=== PATIENT | female | born 1995 | race Caucasian/White ===

== ENCOUNTER 2018-09-23 18:24 | Emergency (ER) | payer SELFPAY ==
--- NOTE | 2018-09-23 19:02 | ER Document Report ---
ED Medical Screen (RME) - General Chief Complaint: Lower Abdominal Pain Stated Complaint: ABDOMINAL PAIN Time Seen by Provider: 09/23/18 18:58 Primary Care Provider: KEELEY COLON MD [Primary Care Provider] - Follow up as needed Mode of Arrival: Wheelchair Information source: Patient Notes: 23-year-old female presented to ED for complaint of severe pelvic pain and lower abdominal pain. She states that she was recently treated for trichomonas. She states she had sex with another partner who stated that they had chlamydia but she did not go follow-up and get treated for that. She states now she has severe abdominal and pelvic pain. Patient is alert and oriented respirations regular and unlabored speaking in full sentences. Self swab GC chlamydia and wet mount have been completed urine has been ordered. Patient does have tenderness to palpation to the pelvic area. I have greeted and performed a rapid initial assessment of this patient. A comprehensive ED assessment and evaluation of the patient, analysis of test results and completion of medical decision making process will be conducted by an additional ED providers. TRAVEL OUTSIDE OF THE [place] IN LAST 30 DAYS: No - Related Data Allergies/Adverse Reactions: No Known Allergies Allergy (Unverified 09/23/18 18:27) Physical Exam - Vital signs Vitals: Temp Pulse Resp BP Pulse Ox 99.2 F 96 18 111/71 99 09/23/18 18:46 09/23/18 18:46 09/23/18 18:46 09/23/18 18:46 09/23/18 18:46 Course - Vital Signs Vital signs: Temp Pulse Resp BP Pulse Ox 99.2 F 96 18 111/71 99 09/23/18 18:46 09/23/18 18:46 09/23/18 18:46 09/23/18 18:46 09/23/18 18:46 Doctor's Discharge - Discharge Referrals: KEELEY COLON MD [Primary Care Provider] - Follow up as needed
[2018-09-23 19:15] LABS: BACTERIA (WET MOUNT) 4+ BACTERIA SEEN; EPITHELIALS (WET MOUNT) 4+ EPITHELIALS SEEN; T.VAGINALIS (WET MOUNT) TRICHOMONAS SEEN; WBCS (WET MOUNT) 2+ WBCS SEEN; YEAST (WET MOUNT) NO YEAST SEEN
[2018-09-23 19:31] LABS: APPEARANCE,URINE CLOUDY; BILIRUBIN,URINE NEGATIVE (NEGATIVE); COLOR,URINE AMBER; GLUCOSE, URINE NEGATIVE (NEGATIVE); KETONES,URINE NEGATIVE (NEGATIVE); LEUKOCYTE ESTERASE,URINE SMALL (NEGATIVE); NITRITE,URINE NEGATIVE (NEGATIVE); PROTEIN,URINE 30 mg/dL (NEGATIVE)
[2018-09-23] MEDS ORDERED: METRONIDAZOLE 500 MG TABLET PO ONE (19:59)
[2018-09-23] MEDS ORDERED: CEFTRIAXONE INJ 250 MG VIAL IM ONE (19:59)
[2018-09-23] MEDS ORDERED: AZITHROMYCIN 250 MG TABLET PO ONE ×2 (19:59→20:08)
[2018-09-23] MEDS ORDERED: LIDOCAINE 1% INJ-PF (10 MG/ML) 30 ML SDV INJ ONE (19:59)
[2018-09-23] MEDS ORDERED: IBUPROFEN 800 MG TABLET PO ONE (19:59)
[2018-09-23] MEDS ORDERED: PROMETHAZINE HCL 25 MG TABLET PO ONE (20:13)
--- NOTE | 2018-09-23 20:20 | ER Document Report ---
ED GI/ - General Chief Complaint: Lower Abdominal Pain Stated Complaint: ABDOMINAL PAIN Time Seen by Provider: 09/23/18 18:58 Primary Care Provider: KEELEY COLON MD [COMMUNITY BASED STAFF] - Follow up as needed Mode of Arrival: Wheelchair Information source: Patient Notes: 23-year-old female presented to ED for complaint of pelvic pain. She did not want to discuss what was going on while her father was in the room. She is related to her father left the room and then stated that she had sex with a sexual partner that stated he had chlamydia and she did not get treated and now she has pelvic pain. She also stated that she was recently treated for trichomonas. When I saw her earlier in the [employer] she stated she did not want a complete pelvic she just wanted to be tested. She did self swab for wet mount and GC and chlamydia. She did come back positive for trichomonas and was treated with Flagyl, Rocephin, and azithromycin in the emergency room she was a lso treated with ibuprofen. She was given Phenergan due to the amount of medication she was taken. TRAVEL OUTSIDE OF THE [place] IN LAST 30 DAYS: No - HPI Patient complains to provider of: Pelvic pain, Vaginal discharge Onset: Other - 2-3 days Timing/Duration: Gradual, Intermittent Quality of pain: Achy, Dull Severity at maximum: Severe Severity in ED: Moderate Pain Level: 3 Location: Pelvis, Vaginal Vaginal bleeding (Compared to normal period): None Sexual history: Multiple partners, Unprotected intercourse, STD exposure Associated symptoms: Nausea, Radiates to vagina, Vaginal discharge Exacerbated by: Coughing Relieved by: Denies Similar symptoms previously: Yes Recently seen / treated by doctor: No - Related Data Allergies/Adverse Reactions: No Known Allergies Allergy (Unverified 09/23/18 18:27) Past Medical History - General Information source: Patient - Social History Smoking Status: Former Smoker Frequency of alcohol use: None Drug Abuse: Other - She is taken suboxone from the street. 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 She states she has not been to a doctor to get a prescription. Lives with: Family Family History: Reviewed & Not Pertinent Patient has suicidal ideation: No Patient has homicidal ideation: No - Past Medical History Cardiac Medical History: Reports: None Pulmonary Medical History: Reports: None EENT Medical History: Reports: None Neurological Medical History: Reports: None Endocrine Medical History: Reports: None Renal/ Medical History: Reports: Hx Pelvic Inflammatory Disease Malignancy Medical History: Reports: None GI Medical History: Reports: None Musculoskeletal Medical History: Reports None Skin Medical History: Reports None Psychiatric Medical History: Reports: None Traumatic Medical History: Reports: None Infectious Medical History: Reports: None Review of Systems - Review of Systems Constitutional: No symptoms reported EENT: No symptoms reported Cardiovascular: No symptoms reported Respiratory: No symptoms reported Gastrointestinal: No symptoms reported Genitourinary: No symptoms reported Female Genitourinary: Vaginal bleeding, Other - Pelvic pain Musculoskeletal: No symptoms reported Skin: No symptoms reported Hematologic/Lymphatic: No symptoms reported Neurological/Psychological: No symptoms reported -: Yes All other systems reviewed and negative Physical Exam - Vital signs Vitals: Temp Pulse Resp BP Pulse Ox 99.2 F 96 18 111/71 99 09/23/18 18:46 09/23/18 18:46 09/23/18 18:46 09/23/18 18:46 09/23/18 18:46 Interpretation: Normal - General General appearance: Appears well, Alert - HEENT Head: Normocephalic, Atraumatic Eyes: Normal Pupils: PERRL - Respiratory Respiratory status: No respiratory distress Chest status: Nontender Breath sounds: Normal Chest palpation: Normal - Cardiovascular Rhythm: Regular Heart sounds: Normal auscultation Murmur: No - Abdominal Inspection: Normal Distension: No distension Bowel sounds: Normal Tenderness: Nontender Organomegaly: No organomegaly - Back Back: Normal, Nontender - Extremities General upper extremity: Normal inspection, Nontender, Normal color, Normal ROM, Normal temperature General lower extremity: Normal inspection, Nontender, Normal color, Normal ROM, Normal temperature, Normal weight bearing. No: Bruce's sign - Neurological Neuro grossly intact: Yes Cognition: Normal Orientation: AAOx4 [place] Coma Scale Eye Opening: Spontaneous [place] Coma Scale Verbal: Oriented [place] Coma Scale Motor: Obeys Commands Satinder Coma Scale Total: 15 Speech: Normal Motor strength normal: LUE, RUE, LLE, RLE Sensory: Normal - Psychological Associated symptoms: Normal affect, Normal mood - Skin Skin Temperature: Warm Skin Moisture: Dry Skin Color: Normal Course - Re-evaluation Re-evalutation: 09/24/18 02:13 Patient refused pelvic exam but she did do self swabs. She was positive for trichomonas and bacterial vaginosis. She states she knows that she had unprotected sex with a partner that was positive for chlamydia and did not get treated. She was treated in the emergency room with Flagyl, ibuprofen, Phenergan, Rocephin IM, and a azithromycin. She was discharged home with prescription for Flagyl. After she had gone home her GC and chlamydia came back positive for gonorrhea. She had been instructed to call for the results of her GC and chlamydia. She was treated. Patient was instructed to follow-up with her primary doctor to please get on a prescription of the Suboxone instead of getting street drugs. Patient was instructed that it is very important that she follows up with a primary care doctor and [facility] for her chronic pelvic inflammatory disease. - Vital Signs Vital signs: Temp Pulse Resp BP Pulse Ox 98.1 F 92 16 111/61 99 09/23/18 20:31 09/23/18 20:31 09/23/18 20:31 09/23/18 20:31 09/23/18 20:31 - Laboratory Laboratory results interpreted by me: 09/23/18 09/23/18 18:56 19:14 Urine Protein 30 H Urine Blood SMALL H Urine Urobilinogen 4.0 H Ur Leukocyte Esterase SMALL H N.gonorrhoeae DNA (PCR) DETECTED H Discharge - Discharge Clinical Impression: Pelvic pain, Trichomonas vaginalis (TV) infection, Bacterial vaginitis, Chlamydia contact, untreated Condition: Stable Disposition: HOME, SELF-CARE Additional Instructions: VAGINITIS: Your exam shows that you have vaginitis, a vaginal infection. The infection can be caused by a many different organisms, including trichomonas or Gardnerella. The usual symptoms are vaginal irritation and discharge. The treatment is usually antibiotics such as Flagyl. Laboratory tests can determine which germ is responsible. Use the medication as prescribed. Because this infection can be transmitted sexually, your sexual partner may need to be checked and treated also. If your physician has not discussed this with you, please check before resuming sexual relations. If a culture shows gonorrhea or chlamydia, the infection must be reported to the health department. Call the doctor if you develop pelvic pain, fever, or problems with urination, or if you don't improve as expected. VAGINOSIS, BACTERIAL: Your exam shows you have bacterial vaginosis. This condition is due to an overgrowth of bacteria in the vagina. Symptoms may include vaginal itching or pain, a smelly discharge, and sometimes burning with urination. Normally this is not transmitted by sexual contact. Vaginosis can be treated with oral or topical antibiotics. Metronidazole (Flagyl) pills are usually effective. Topical vaginal creams include Cleocin and Metro-Gel. You should avoid sexual contact until your symptoms are all better. Call the doctor if you develop pelvic pain, fever, or problems with urination, or if you don't improve as expected. VAGINAL TRICHOMONAS INFECTION: Trichomoniasis is infection of the vagina or male genital tract with Trichomonas vaginalis. It can be asymptomatic or cause urethritis, vaginitis, or occasionally cystitis, epididymitis, or prostatitis. Diagnosis is by microscopic examination of vaginal or prostatic secretions or by urethral culture. Patients and sex partners are treated with metronidazole. T. vaginalis is a flagellated, sexually transmitted protozoan that more often infects women (about 20% of women of reproductive age) than men. Infection may be asymptomatic in either sex, but asymptomatic is the rule for men. In men, protozoa may persist for long periods in the tract without causing symptoms; thus, protozoa may be transmitted unwittingly to sex partners. Trichomoniasis may account for up to 5% of nongonococcal, nonchlamydial urethritis in men in some areas. Co-infection with gonorrhea and other sexually transmitted diseases (STDs) is common. In women, symptoms range from none to copious, yellow-green, frothy vaginal discharge with soreness of the vulva and perineum, dyspareunia, and dysuria. Asymptomatic infection may become symptomatic at any time as the vulva and perineum become inflamed and edema develops in the labia. The vaginal pacheco and surface of the cervix may have punctate, red "strawberry" spots. Urethritis and possibly cystitis may also occur. Men are usually asymptomatic; however, sometimes urethritis results in a discharge that may be transient, frothy, or purulent or that causes dysuria and frequency, usually early in the morning. Often, urethritis is mild and causes only minimal urethral irritation and occasional moisture at the urethral meatus, under the foreskin, or both. Epididymitis and prostatitis are rare complications. Trichomoniasis is suspected in women with vaginitis, in men with urethritis, and in their sex partners. Suspicion is high if symptoms persist after patients have been evaluated and treated for other infections such as gonorrhea and chlamydial, mycoplasmal, and ureaplasmal infections. In women, diagnosis is based on clinical criteria and in-office testing. The saline wet mount is examined microscopically as soon as possible to detect trichomonads.In men, microscopy of urine is insensitive, although occasionally organisms are visible in a first-voided morning specimen or a centrifuged specimen. Cultures of urine and urethral swabs are more sensitive. As with diagnosis of any STD, patients with trichomoniasis should be tested to exclude other common STDs such as gonorrhea and chlamydial infection. Metronidazole or tinidazole 2 g po in a single dose cures up to 95% of women if sex partners are treated simultaneously. Effectiveness of single-dose regimens in men is not as clear, so treatment is typically with metronidazole or tinidazole 500 mg bid for 5 to 7 days. Sex partners should be screened and treated for trichomoniasis and other STDs. If poor adherence to follow-up is likely, treatment can be initiated in se x partners of patients with documented trichomoniasis without confirming the diagnosis in the partner. ANTIBIOTIC THERAPY: You have been given an antibiotic prescription. It's important that you take all the medication, unless instructed otherwise by your physician. Failure to complete the entire course can result in relapse of your condition. Common side effects of antibiotics include nausea, intestinal cramping, or diarrhea. Women may develop vaginal yeast infections, and babies can get yeast (thrush) in the mouth following the use of antibiotics. Contact your physician if you develop significant side effects from this medication. Allergy to this antibiotic can result in hives, wheezing, faintness, or itching. If symptoms of allergy occur, stop the medication and call the doctor. CEPHALOSPORINS: An antibiotic of the cephalosporin class has been prescribed. This type of antibiotic covers a wide variety of infections, including those of the skin, lungs, middle ear, and urinary tract. This antibiotic is somewhat similar to the penicillin family. In rare cases, a person who is allergic to penicillin will also be allergic to this medication. If you have had a severe allergic reaction to penicillin, and have not taken this antibiotic since that time, notify your doctor. Antibiotics which cover many germs ("broad spectrum" antibiotics) are more likely to cause diarrhea or "yeast" infections. Women prone to vaginal yeast problems may suffer an attack after taking this antibiotic. In infants, oral thrush (white spots "stuck" on the cheek) or yeast diaper rash may result. See your doctor if these problems occur. Call the doctor at once if you develop hives, itching, shortness of breath, or lightheadedness. AZITHROMYCIN: Azithromycin (Zithromax) is a broad spectrum antibiotic in the same class as erythromycin. It can treat a variety of bacterial infections, but is most frequently used for respiratory infections. Azithromycin is extremely long-lasting. It accumulates in body tissues and continues to kill bacteria for many days. In order to improve absorption, Azithromycin should be taken at least one hour before or two hours after a meal. It does not have the same strong tendency to upset the stomach as erythromycin and is usually very well tolerated. Patients who have had a rash or other true allergic reactions to erythromycin should not take this medication. Call if you develop gastrointestinal distress, severe diarrhea, rash, hives, itching, or shortness of breath. METRONIDAZOLE: Metronidazole (Flagyl) has been prescribed. This medication is used to kill a type of bacteria called anaerobes, and protozoan parasites such as trichomonas and Giardia. Flagyl often causes a metallic taste in the mouth and mild nausea. Do not use alcohol in any form with Flagyl (including alcohol in medication elixirs). Flagyl interacts with alcohol to cause flushing, palpitations, head ache, stomach cramps, and vomiting. Do not use Flagyl if you are taking Antabuse (disulfiram). Call the doctor at once if you develop rash, shortness of breath, itching, or lightheadedness. Antinausea Medication You have been given a medication to suppress nausea and vomiting. This type of medication can be given as a shot, pill, or suppository. It will usually last for many hours. Pills and shots usually last six to eight hours, suppositories last about 12 hours. For the typical illness, only one or two doses of the medication may be necessary. Mild lightheadedness may occur. This type of medicine can cause drowsiness. Do not drive or operate dangerous machinery while under its influence. Do not mix with alcohol. See your doctor at once if you have muscle spasms or tightness, or uncontrollable motions (particularly of the neck, mouth, or jaw). Persistent vomiting or severe lightheadedness should also be evaluated by the physician. Ibuprofen Ibuprofen is an excellent, safe drug for pain control. In addition, it has potent antiinflammatory effects which are beneficial, especially in the treatment of injuries, arthritis, or tendonitis. It's best to take ibuprofen with food. Persons with ulcer disease or allergy to aspirin should notify their physician of this before taking ibuprofen. Take the medication exactly as prescribed. Don't take additional doses unless instructed to do so by your doctor. If you develop wheezing, shortness of breath, hives, faintness, stomach pain, vomiting, or dark black stools, retu rn for re-evaluation at once. You can call [phone] for the results of your GC and chlamydia between in about an hour for your results FOLLOW-UP CARE: If you have been referred to a physician for follow-up care, call the physicians office for an appointment as you were instructed or within the next two days. If you experience worsening or a significant change in your symptoms, notify the physician immediately or return to the Emergency Department at any time for re-evaluation. Prescriptions: Metronidazole [Flagyl 500 mg Tablet] 500 mg PO BID #28 tablet Ondansetron [Zofran Odt 4 mg Tablet] 1 tab PO Q6H #7 tab.rapdis Referrals: KEELEY COLON MD [COMMUNITY BASED STAFF] - Follow up as needed
[2018-09-23 20:33] VITALS: BP 111/61
[2018-09-23 20:34] LABS: CHLAM PCR NOT DETECTED (NOT DETECT); GON PCR DETECTED (NOT DETECT)
== END 2018-09-23 20:37 | disposition home or self-care (01) ==
LOC: ER 18:24
DX: A59.01 Trichomonal vulvovaginitis (principal); N76.0 Acute vaginitis; B96.89 Other specified bacterial agents as the cause of diseases classified elsewhere; Z20.2 Contact with and (suspected) exposure to infections with a predominantly sexual mode of transmission; R10.30 Lower abdominal pain, unspecified; R10.2 Pelvic and perineal pain; Z87.891 Personal history of nicotine dependence; Z79.899 Other long term (current) drug therapy
CPT/HCPCS: 99284; 96372; 87086; 87210; 81025; 87088; 81001; 87491; 87591; J3490; J0696